=== PATIENT | male | born 1945 | race Caucasian/White ===

== ENCOUNTER 2019-04-02 11:47 | Day surgery (SDC) | payer MEDICARE ==
[~2019-04-02] VITALS: Ht 167.6 cm; Wt 72.7 kg
[~2019-04-02 11:47] MED LIST: SODIUM CHLORIDE 0.9% 1,000 ML IV ONE
[2019-04-02] MEDS ORDERED: PROPOFOL 1% 20 ML VIAL IVP ONE (12:00)
[2019-04-02] MEDS ORDERED: ONDANSETRON HCL 4 MG/2 ML VIAL IVP ONE (12:00)
[2019-04-02] MEDS ORDERED: FentaNYL CITRATE-PF 100 MCG/2 ML VIAL IVP ONE (12:00)
[2019-04-02] MEDS ORDERED: LIDOCAINE/PF 2% 5 ML VIAL INJ ONE (12:00)
[2019-04-02] MEDS ORDERED: MIDAZOLAM HCL 2 MG/2 ML VIAL IVP ONE (12:00)
[2019-04-02] MEDS ORDERED: LIDOCAINE/PF 1% 30 ML VIAL ONE (12:11)
[2019-04-02] MEDS ORDERED: HEPARIN SODIUM 1000 UNITS/NS 0 ML ONE (12:11)
[2019-04-02] MEDS ORDERED: SODIUM CHLORIDE 0.9% 1,000 ML IV ONE (12:30)
[2019-04-02 12:49] LABS: EOSINOPHILS % (AUTO) 2.9 % (1.0-6.0); HEMATOCRIT 33.7 % (41-53); HEMOGLOBIN 11.3 g/dL (13.5-17.5); LYMPHOCYTES # (AUTO) 0.8 K/uL (1.0-4.8); LYMPHOCYTES % (AUTO) 13.9 % (22.0-44.0); MEAN CORPUSCULAR HEMOGLOBIN 34.4 pg (26.0-34.0); MEAN CORPUSCULAR HGB CONC 33.4 G/dL (31.0-37.0); MEAN CORPUSCULAR VOLUME 103 fL (80-100); MONOCYTES # (AUTO) 0.7 K/uL (0.1-1.0); MONOCYTES % (AUTO) 11.8 % (2.0-9.0); NEUTROPHILS % (AUTO) 70.4 % (40.0-70.0); PLATELET COUNT (AUTO) 160 K/uL (150-450); RED BLOOD CELL COUNT(AUTO) 3.27 MIL/uL (4.50-5.90); RED CELL DISTRIBUTION WIDTH 15.6 % (11.5-14.5)
[2019-04-02 12:58] LABS: CALCIUM, TOTAL 9.7 mg/dL (8.8-10.5); CREATININE 3.78 mg/dL (0.60-1.30); POTASSIUM 4.2 mmol/L (3.5-5.1)
[2019-04-02 13:01] LABS: INR 1.1 (0.9-1.1); PROTHROMBIN TIME 11.4 SEC (9.4-11.6)
[2019-04-02 13:04] LABS: ALBUMIN 3.5 g/dL (3.4-5.0); BILIRUBIN,TOTAL 0.8 mg/dL (0.1-1.0); TOTAL PROTEIN, SERUM 6.6 g/dL (6.4-8.2)
[2019-04-02] MEDS ORDERED: COMP5 PO (13:29)
[2019-04-02] MEDS ORDERED: NIFE30TA98 PO (13:29)
[2019-04-02] MEDS ORDERED: SERT100T12 PO (13:29)
[2019-04-02] MEDS ORDERED: METO5TAB95 PO (13:29)
[2019-04-02] MEDS ORDERED: HYDR-2924 PO (13:29)
[2019-04-02] MEDS ORDERED: PANT40TA25 PO (13:29)
[2019-04-02] MEDS ORDERED: SEVE800T17 PO (13:29)
[2019-04-02] MEDS ORDERED: ALPR1TAB7 PO (13:29)
[2019-04-02] MEDS ORDERED: CINA30 PO (13:29)
[2019-04-02] MEDS ORDERED: LOSA50TA64 PO (13:29)
[2019-04-02] MEDS ORDERED: MEGE40 PO (13:29)
[2019-04-02] MEDS ORDERED: ASPI81 PO (13:29)
[2019-04-02] MEDS ORDERED: ATOR40TA28 PO (13:29)
[2019-04-02] MEDS ORDERED: CLON1PAT14 TD (13:29)
[2019-04-02] MEDS ORDERED: MEPERIDINE-PF 25 MG/ML VIAL IVP PRN (13:45)
[2019-04-02] MEDS ORDERED: FentaNYL CITRATE-PF 100 MCG/2 ML VIAL IVP PRN (13:45)
[2019-04-02] MEDS ORDERED: HYDROmorphone 2 MG/ML SYRINGE IVP PRN (13:45)
[2019-04-02] MEDS ORDERED: POVIDONE-IODINE 30 GM OINTMENT TP ONE (13:47)
[2019-04-02] MEDS ORDERED: OXYGEN THERAPY IH SCH (20:00)
== END 2019-04-02 15:20 | disposition home or self-care (01) ==
LOC: SURGERY 11:47
PROVIDERS: ATTEND Surgery
DX: L98.8 Other specified disorders of the skin and subcutaneous tissue (principal); E11.22 Type 2 diabetes mellitus with diabetic chronic kidney disease; I12.0 Hypertensive chronic kidney disease with stage 5 chronic kidney disease or end stage renal disease; N18.6 End stage renal disease; Z99.2 Dependence on renal dialysis; Z88.8 Allergy status to other drugs, medicaments and biological substances; Z85.828 Personal history of other malignant neoplasm of skin; R20.8 Other disturbances of skin sensation; L94.9 Localized connective tissue disorder, unspecified
CPT/HCPCS: 11400; 36415; 80053; 85025; 85610; 85730; 93005; J0690; J2250; J2405; J2704; J3010; J3490 ×2; J7030; J1644